=== PATIENT | female | born 1990 | race African-American/Black ===

== ENCOUNTER 2023-12-07 01:12 | Emergency (ER) | payer BC ==
[~2023-12-07] VITALS: Ht 167.6 cm; Wt 110.0 kg
[2023-12-07] MEDS ORDERED: ACETAMINOPHEN 500 MG TAB PO ONE (01:45)
[2023-12-07] MEDS ORDERED: KETOROLAC TROMETHAMINE 30 MG/ML SDV IM ONE (01:45)
[2023-12-07 01:55] LABS: URINE GLUCOSE - DIPSTICK Negative (NEGATIVE); URINE KETONE Trace mg/dL (NEGATIVE); URINE NITRITE - DIPSTICK Negative (Negative); URINE PROTEIN - DIPSTICK 30 mg/dL (NEG-TRACE); URINE SPECIFIC GRAVITY 1.025; URINE UROBILINOGEN - DIPSTICK 0.2 E.U./dL (0.2)
[2023-12-07 01:56] LABS: URINE COLOR Yellow; URINE LEUK ESTERASE Small (NEGATIVE)
[2023-12-07 01:58] LABS: URINE BLOOD DIPSTICK Negative (NEGATIVE)
[2023-12-07 02:01] LABS: URINE EPITHELIAL CELLS FEW EPI/hpf (0-FEW)
[2023-12-07 02:02] LABS: URINE BACTERIA FEW hpf
[2023-12-07] MEDS ORDERED: TORADOL PO (02:34)
[2023-12-07 02:46] VITALS: BP 128/71
== END 2023-12-07 02:46 | disposition home or self-care (01) | DRG 605 ==
LOC: ED 01:12
PROVIDERS: Family Medicine
DX: S30.0XXA Contusion of lower back and pelvis, initial encounter (principal); W01.0XXA Fall on same level from slipping, tripping and stumbling without subsequent striking against object, initial encounter